=== PATIENT | male | born 1975 | race Two or more races ===

== ENCOUNTER 2019-09-14 13:58 | Inpatient (IN) | payer OTHER, MEDICAID ==
[~2019-09-14] VITALS: Ht 170.2 cm; Wt 122.0 kg
[2019-09-14] MEDS ORDERED: ACETAMINOPHEN 325 MG TAB PO ONE (14:15)
[2019-09-14] MEDS ORDERED: SODIUM CHLORIDE 0.9% 1,000 ML IVB ONE (14:52)
[2019-09-14] MEDS ORDERED: ASCORBIC ACID 500 MG TAB PO ONE (15:00)
[2019-09-14] MEDS ORDERED: DOXYCYCLINE 100 MG TAB/CAP PO ONE (15:00)
[2019-09-14] MEDS ORDERED: ZINC SULFATE 220mg CAP or TAB PO ONE (15:00)
[2019-09-14] MEDS ORDERED: DexAMETHasone 4 MG TAB PO ONE (15:00)
[2019-09-14 16:01] LABS: Basophils # (auto) 0.1 10 ^3/uL (0-0.2); Basophils % (auto) 0.5 % (0.0-2.0); Eosinophils # (auto) 0 10 ^3/uL (0-0.8); Eosinophils % (auto) 0.2 % (0.0-7.0); Hemoglobin 15.3 g/dL (13.5-17.5); Lymphocytes # (auto) 1.4 10 ^3/uL (0.4-5.4); Lymphocytes % (auto) 11.2 % (10.0-50.0); Mean Corpuscular Hemoglobin 29.4 pg (28.0-32.0); Mean Corpuscular Hgb Conc. 32.7 g/dL (32.0-36.0); Mean Corpuscular Volume 89.9 fL (80.0-100.0); Monocytes # (auto) 0.6 10 ^3/uL (0-1.3); Monocytes % (auto) 4.9 % (0.0-12.0); Neutrophils % (auto) 83.2 % (37.0-80.0); Platelet Count (auto) 276 10^3/uL (140-450); Red Blood Cells 5.23 10^6/uL (4.5-5.90); Red Cell Distribution Width 14.5 % (11.8-14.3)
[2019-09-14 16:16] LABS: INR 0.99 (0.9-1.15); Partial Thromboplastin Time 23.9 sec (23.64-32.05)
[2019-09-14 17:16] LABS: Albumin 2.9 g/dL (3.4-5.0); Calcium 8.7 mg/dL (8.5-10.1); Magnesium 3.1 mg/dL (1.6-2.6); Potassium 4.3 mmol/L (3.5-5.1)
[2019-09-14 17:19] LABS: Bilirubin, Total 0.7 mg/dL (0.2-1.0); Total Protein 8.2 g/dL (6.4-8.2)
[2019-09-14 17:21] LABS: BUN/Creatinine Ratio 11.6
[2019-09-14] MEDS ORDERED: NITROGLYCERIN 0.4 MG SL TAB SL PRN (18:30)
[2019-09-14] MEDS ORDERED: MORPHINE SULF INJ 2 MG/ML SYRINGE 1ML IV PRN ×2 (18:30→19:15)
[2019-09-14] MEDS ORDERED: SODIUM CHLORIDE 0.9% 1,000 ML IV SCH (19:02)
[2019-09-14] MEDS ORDERED: traMADol HCL 50 MG TAB PO PRN (19:15)
[2019-09-14] MEDS ORDERED: LACTULOSE 20Gm/30ML SOLN PO PRN (19:15)
[2019-09-14] MEDS ORDERED: ACETAMINOPHEN 500 MG TAB PO PRN (19:15)
[2019-09-14] MEDS ORDERED: levoFLOXacin 500MG 100 ML IV ONE (19:15)
[2019-09-14] MEDS ORDERED: PROMETHAZINE HCL 25 MG/ML 1ML IV PRN (19:15)
[2019-09-14] MEDS ORDERED: TEMAZEPAM 15 MG CAP PO PRN (19:15)
[2019-09-14] MEDS: ENOXAPARIN SOD 40 MG/0.4 ML SYRINGE SC SCH ×2 (19:45→21:42)
[2019-09-14 20:54] LABS: CRP High Sensitivity 17.5 mg/dL (< 0.3)
[2019-09-14] MEDS: CLINDAMYCIN 600MG IV 50 ML IV SCH (21:42)
[2019-09-14] MEDS: FAMOTIDINE 20 MG TAB PO SCH (21:42)
[2019-09-14] MEDS: ALBUTEROL SULF HFA 90MCG INH 200DOSE IN SCH (22:00)
[2019-09-14 23:30] VITALS: BP 131/84
--- NOTE | 2019-09-14 23:30 | NUR ---
MS admit from [facility] admitted to tele/MS. Patient oriented to GOLDEN BOUDREAUX RN, room 233. Patient weighed by bedscale and encouraged to call if they need something. All questions and concerns addressed, patient verbalized understanding. Pt is on 2L NC with even and unlabored respirations. Bed locked, in lowest position, call light within reach, side rails up x2. Will continue to monitor q1hr and PRN.
[2019-09-15] VITALS (7 sets, daily range): BP systolic 108–131; BP diastolic 69–86
--- NOTE | 2019-09-15 05:30 | NUR ---
IV insertion IV access obtained, via clean sterile technique by inserting 22 gauge catheter at left hand after 3 attempt. IV secured properly. No trauma to site. Patient tolerated procedure well.
[2019-09-15 05:35] LABS: Basophils # (auto) 0 10 ^3/uL (0-0.2); Basophils % (auto) 0.4 % (0.0-2.0); Eosinophils # (auto) 0 10 ^3/uL (0-0.8); Hematocrit 49.7 % (41.0-53.0); Hemoglobin 16.1 g/dL (13.5-17.5); Lymphocytes # (auto) 1.3 10 ^3/uL (0.4-5.4); Lymphocytes % (auto) 15.1 % (10.0-50.0); Mean Corpuscular Hemoglobin 29.1 pg (28.0-32.0); Mean Corpuscular Hgb Conc. 32.4 g/dL (32.0-36.0); Mean Corpuscular Volume 89.8 fL (80.0-100.0); Monocytes # (auto) 0.5 10 ^3/uL (0-1.3); Monocytes % (auto) 5.2 % (0.0-12.0); Neutrophils % (auto) 79.3 % (37.0-80.0); Nucleated Red Blood Cells % 0.1 %; Platelet Count (auto) 311 10^3/uL (140-450); Red Blood Cells 5.54 10^6/uL (4.5-5.90); Red Cell Distribution Width 14.4 % (11.8-14.3); White Blood Cell 8.8 10^3/uL (4.4-10.8)
[2019-09-15 05:46] LABS: Albumin 2.9 g/dL (3.4-5.0); Calcium 8.7 mg/dL (8.5-10.1); Potassium 4.6 mmol/L (3.5-5.1)
[2019-09-15] MEDS: CLINDAMYCIN 600MG IV 50 ML IV SCH (05:49)
[2019-09-15 05:50] LABS: BUN/Creatinine Ratio 17.6; Bilirubin, Total 0.6 mg/dL (0.2-1.0); Total Protein 8.9 g/dL (6.4-8.2)
[2019-09-15] MEDS: ALBUTEROL SULF HFA 90MCG INH 200DOSE IN SCH ×4 (06:00→22:26)
--- NOTE | 2019-09-15 06:28 | NUR ---
INHALER NOT AT BEDSIDE, PHARMACY WILL BE NOTIFY. PT ON 1L NC WITH SPO2 95%, HR 74, RR 16 NO DISTRESS NOTED. WILL CONTINUE TO MONITOR PT.
[2019-09-15] MEDS ORDERED: levoFLOXacin 500MG 100 ML IV SCH (10:00)
--- NOTE | 2019-09-15 10:30 | NUR ---
called pharmacy RE: plaquenil out of stock, said they will send in 15 min
[2019-09-15] MEDS: DexAMETHasone SOD PHOS 10MG/1ML VIAL INJ IV SCH (10:56)
[2019-09-15] MEDS: ZINC SULFATE 220mg CAP or TAB PO SCH (10:56)
[2019-09-15] MEDS: FAMOTIDINE 20 MG TAB PO SCH ×2 (10:57→21:48)
[2019-09-15] MEDS: ASCORBIC ACID 1,000 MG TAB PO SCH (10:57)
[2019-09-15] MEDS: CHOLECALCIFEROL (VITD3) 2,000 UNIT CAP PO SCH (10:57)
[2019-09-15] MEDS: ENOXAPARIN SOD 40 MG/0.4 ML SYRINGE SC SCH ×2 (10:57→21:26)
--- NOTE | 2019-09-15 10:58 | NUR ---
patient educated on plaquenil, patient verbalized understanding and agrees to care plan
--- NOTE | 2019-09-15 11:38 | NUR ---
called pharmacy Re: [facility] still not here, stated they would ask pharmacists to take a look.
--- NOTE | 2019-09-15 11:55 | NUR ---
MD at bedside to explain plaquenil. Patient verbalized understanding,.
--- NOTE | 2019-09-15 12:00 | NUR ---
Dr needs EKG before plaquenil can begin
--- NOTE | 2019-09-15 12:29 | NUR ---
EKG done on patient per MD order. Patient Sinus Rythem 69, QT 0.32.
[2019-09-15] MEDS ORDERED: DEXTROSE (50%) 50ML SYRG IV PRN (13:45)
[2019-09-15] MEDS ORDERED: POTASSIUM CHL 10 Meq TABLET PO ONE (14:00)
[2019-09-15] MEDS ORDERED: FUROSEMIDE 20 MG/2 ML VIAL IV ONE (14:00)
[2019-09-15] MEDS: InsuLIN REG 1unit/0.01ml Soln (100units/ml) SC SCH ×2 (16:42→22:00)
[2019-09-15] MEDS: ACCU-CHEK COMFORT CURVE STRIP VI SCH ×2 (16:43→21:49)
--- NOTE | 2019-09-15 20:00 | NUR ---
Opening Shift Note Assumed care of patient. Awake, alert an oriented x4. No S/S of distress/SOB or pain. Pt is on 2L NC with even and unlabored respirations. Instructed on POC and to call for assist PRN. Bed locked, in lowest position, call light within reach, side rails up x2. Will continue to monitor for changes Q1hr and PRN.
[2019-09-15] MEDS: DOXYCYCLINE 100 MG TAB/CAP PO SCH (21:49)
[2019-09-15] MEDS: hydrOXYchloroQUINE SULFATE 200 MG TAB PO SCH (21:49)
--- NOTE | 2019-09-15 22:26 | NUR ---
RT NOTE PT WAS SEEN BY RT FOR MDI TX. PT TOLERATES WELL VIA SPACER. PT RINSED MOUTH WITH WATER POST MDI TX. HR 59, RR16, PBS CLEAR/DIMINISHED, POX 97% ON 2L NASAL CANNULA. CONT ORDERED Addendum: 09/15/19 at 2233 by Rachna Powell RT Amended: Links added.
[2019-09-15] MEDS: BUDESONIDE (INHALATION) 180 MCG IH IN SCH (22:29)
[2019-09-16 05:00] VITALS: BP 113/79
[2019-09-16 05:15] LABS: Albumin 2.6 g/dL (3.4-5.0); Magnesium 2.6 mg/dL (1.6-2.6); Potassium 4.7 mmol/L (3.5-5.1)
[2019-09-16 05:25] LABS: BUN/Creatinine Ratio 23.1; Bilirubin, Total 0.4 mg/dL (0.2-1.0); CRP High Sensitivity 6.48 mg/dL (< 0.3); Total Protein 7.5 g/dL (6.4-8.2)
[2019-09-16] MEDS: ALBUTEROL SULF HFA 90MCG INH 200DOSE IN SCH ×2 (06:28→14:07)
[2019-09-16] MEDS: BUDESONIDE (INHALATION) 180 MCG IH IN SCH (06:29)
[2019-09-16] MEDS: InsuLIN REG 1unit/0.01ml Soln (100units/ml) SC SCH ×3 (06:48→16:26)
[2019-09-16] MEDS: ACCU-CHEK COMFORT CURVE STRIP VI SCH ×3 (06:48→16:26)
[2019-09-16 09:00] VITALS: BP 108/69
[2019-09-16] MEDS: DexAMETHasone SOD PHOS 10MG/1ML VIAL INJ IV SCH (09:40)
[2019-09-16] MEDS: FAMOTIDINE 20 MG TAB PO SCH (09:42)
[2019-09-16] MEDS: ZINC SULFATE 220mg CAP or TAB PO SCH (09:42)
[2019-09-16] MEDS: ASCORBIC ACID 1,000 MG TAB PO SCH (09:43)
[2019-09-16] MEDS: CHOLECALCIFEROL (VITD3) 2,000 UNIT CAP PO SCH (09:43)
[2019-09-16] MEDS: DOXYCYCLINE 100 MG TAB/CAP PO SCH (09:43)
[2019-09-16] MEDS: hydrOXYchloroQUINE SULFATE 200 MG TAB PO SCH (09:43)
[2019-09-16] MEDS: ENOXAPARIN SOD 40 MG/0.4 ML SYRINGE SC SCH (09:43)
[2019-09-16] MEDS ORDERED: POTASSIUM CHL 10 Meq TABLET PO SCH (10:00)
[2019-09-16] MEDS ORDERED: FUROSEMIDE 20 MG TAB PO SCH (10:00)
[2019-09-16 12:00] VITALS: BP 109/73
[2019-09-16] MEDS ORDERED: METH4PAK PO (13:52)
[2019-09-16] MEDS ORDERED: ASCO10003 PO (13:52)
[2019-09-16] MEDS ORDERED: HYDR-4188 PO (13:55)
[2019-09-16] MEDS ORDERED: POTA1TAB61 PO (13:55)
[2019-09-16] MEDS ORDERED: DOXY-286 PO (13:55)
[2019-09-16] MEDS ORDERED: PANT40TA2 PO (13:55)
[2019-09-16] MEDS ORDERED: FURO1TAB33 PO (13:55)
[2019-09-16] MEDS ORDERED: ZINC220T6 PO (13:55)
--- NOTE | 2019-09-16 16:00 | NUR ---
PATIENT GIVEN DISCHARGE INSTRUCTIONS PATIENT VERBALIZED UNDERSTANDING OF INSTRUCTIONS, IV DISCONTINUED, TELE BOX RETURNED TO MONITOR TECHS.
--- NOTE | 2019-09-16 16:37 | NUR ---
PATIENT DISCHARGED HOME FROM FACILITY. PATIENT HAD ALL BELONGINGS WITH HIM AT TIME OF DC. EXPLAINED COVID PROTOCOLS HE EXITS THE BUILDING.
[2019-09-16 16:42] VITALS: BP 116/74
== END 2019-09-16 16:36 | disposition home or self-care (01) | DRG 871 ==
LOC: ER 13:58 → TELE 13:59 → TELE-EAST 23:45
PROVIDERS: ADMIT Internal Medicine; ATTEND Internal Medicine
DX: A41.89 Other specified sepsis (principal); U07.1 COVID-19; J12.89 Other viral pneumonia; J96.00 Acute respiratory failure, unspecified whether with hypoxia or hypercapnia; E66.9 Obesity, unspecified; E88.09 Other disorders of plasma-protein metabolism, not elsewhere classified; Z82.49 Family history of ischemic heart disease and other diseases of the circulatory system; Z78.9 Other specified health status
CPT/HCPCS: 36415; 71045; 80053; 82728; 82962; 83605; 83615; 83735; 85025; 85379; 85610; 85730; 86141; 87040; 94640; G0378; J1100; J1956; J3490